=== PATIENT | male | born 1955 | race Caucasian/White ===

== ENCOUNTER → 2017-06-13 | Outpatient (CLI) | payer OTHER ==
[~2017-06-13] VITALS: Ht 175.3 cm; Wt 87.9 kg
[~2017-06-13] MED LIST: ASPCH81 PO; IBUP-1050 PO; MULT-506 PO; OXYC-57 PO
[2017-06-13 15:01] VITALS: BP 135/87; PULSE 97; Ht 175.3 cm; Wt 87.9 kg
== END | disposition home or self-care (01) ==
LOC: C.NEUR 14:38
PROVIDERS: ATTEND Internal Medicine Pulmonary Disease
DX: R06.83 Snoring (principal); R06.81 Apnea, not elsewhere classified

== ENCOUNTER → 2017-06-18 | Outpatient (CLI) | payer OTHER ==
--- NOTE | 2017-06-23 11:56 | POLYSOMNOGRAPH REPORT ---
CLINICAL DATA: A 61-year-old male with BMI of 28.6 with a recent history of hypertension treated by his PCP Dr. Luna. He has had loud snoring for most of his life. His significant other has recently complained that he is snoring very loudly and that he stops breathing at night. She is convinced that he has sleep apnea. He does not have excessive daytime sleepiness. On the evening of 06/18/2017, a home sleep apnea test was performed using a [employer] type 3 monitor. RECORDING RESULTS: Total recording time was 10 hours. The patient's estimated sleep time and patient monitoring time was 5.9 hours. RESPIRATORY DATA: Moderate sleep apnea was documented. The SHY was 21.2. There were 43 obstructive, 7 mixed, and 2 central apneic episodes. There were 74 hypopneic episodes. The longest respiratory event was 48 seconds. OXIMETRY DATA: Nocturnal hypoxemia was seen. Oxygen jeremy was 77%. Mean saturation was 92%. Time below 89% was 13 minutes. HEART RATE DATA: Heart rates ranged from 61-72 beats per minute. SNORING DATA: Snoring was recorded throughout the night. SOLE STAINER'S COMMENTS: Snoring was present throughout the test. Hypopneas and apneas were seen primarily when the patient was sleeping supine. IMPRESSION: Moderate sleep apnea/hypopnea with nocturnal hypoxemia. RECOMMENDATIONS: The patient may benefit from positional therapy, use of an oral appliance, or use of CPAP. Clinical correlation is needed. SUSAN
== END | disposition home or self-care (01) ==
LOC: C.NEUR 09:52
PROVIDERS: ATTEND Internal Medicine Pulmonary Disease
DX: G47.30 Sleep apnea, unspecified (principal); R09.02 Hypoxemia

== ENCOUNTER → 2017-07-15 | Outpatient (CLI) | payer OTHER ==
[~2017-07-15] VITALS: Ht 175.3 cm; Wt 87.0 kg
[2017-07-15 15:58] VITALS: BP 154/94; PULSE 88; Ht 175.3 cm; Wt 87.0 kg
== END | disposition home or self-care (01) ==
LOC: C.NEUR 15:41
PROVIDERS: ATTEND Internal Medicine Pulmonary Disease
DX: G47.30 Sleep apnea, unspecified (principal)